=== PATIENT | male | born 1960 | race Caucasian/White ===

== ENCOUNTER 2020-05-23 13:54 | Outpatient (CLI) | payer OTHER, SELFPAY ==
--- NOTE | 2020-05-23 | ECHO_ITS ---
Patient Info Name: Gold Hernandez Age: 59 years : 1960 Gender: Male Ht: 66 in Wt: 220 lbs BSA: 2.20 m2 HR: 72 bpm BP: 134 / 83 mmHg Technical Quality: Good Exam Date: 05/23/2020 2:31 PM Exam Location: [facility] Patient Status: Outpatient Admit Date: 05/23/2020 Staff Ordering Physician: PHYSICIAN NOT ON STAFF, NONSTAFF Interface Analyst: Juwan Lenz, DENNIS, RT Attending Provider: PHYSICIAN NOT ON STAFF, NONSTAFF Exam Type: CA echo doppler color flow Study Info Indications I10 - Essential (primary) hypertension Complete two-dimensional, color flow and Doppler transthoracic echocardiogram is performed. Summary 1. Left ventricular chamber dimension is normal. 2. Left ventricular systolic function is normal, estimated at 60-65%. 3. The left ventricular diastolic function is grade II diastolic dysfunction. 4. E/e' 7 is not elevated. 5. Right ventricular chamber dimension is mildly enlarged. 6. There is mild tricuspid valve regurgitation. 7. No pulmonary hypertension, estimated pulmonary arterial systolic pressure is 23 mmHg. 8. There is trace pulmonic regurgitation. 9. There is trivial pericardial effusion. Left Ventricle E/e' 7 is not elevated. Left ventricular chamber dimension is normal. Left ventricular systolic function is normal, estimated at 60-65%. The left ventricular diastolic function is grade II diastolic dysfunction. Right Ventricle Moderator band which is normal variant. Right ventricular chamber dimension is mildly enlarged. Right ventricular systolic function is normal. Left Atria Left atrial chamber dimension is normal. Right Atria Right atrial chamber dimension is normal. Aortic Valve The aortic valve is trileaflet. There is no aortic valve stenosis. There is no aortic valve regurgitation. Pulmonic Valve There is trace pulmonic regurgitation. Mitral Valve There is no mitral valve stenosis. There is no mitral valve regurgitation. Tricuspid Valve There is mild tricuspid valve regurgitation. No pulmonary hypertension, estimated pulmonary arterial systolic pressure is 23 mmHg. Pericardium/Pleural There is trivial pericardial effusion. Inferior Vena Cava Normal inferior vena cava with >50% collapse upon inspiration consistent with normal right atrial pressure, 5 mmHg. Aorta The aortic root size at the sinus of Valsalva is normal. Left Ventricular Outflow Tract Name Value Normal LVOT 2D LVOT Diameter 2.0 cm LVOT Doppler LVOT Peak Gradient 2 mmHg LVOT Mean Gradient 1 mmHg LVOT VTI 15 cm LVOT VTI/AV VTI Ratio 0.7 LVOT Stroke Volume 47 ml LVOT CO 3.3 l/min LVOT CI 1.5 l/min/m2 Mitral Valve Name Value Normal MV Doppler
== END 2020-05-23 13:55 | disposition home or self-care (01) ==
PROVIDERS: PCP Family Medicine
DX: I27.20 Pulmonary hypertension, unspecified (principal); I36.1 Nonrheumatic tricuspid (valve) insufficiency
CPT/HCPCS: 93306

== ENCOUNTER 2020-05-30 13:49 | Outpatient (CLI) | payer OTHER, SELFPAY ==
--- NOTE | 2020-06-02 19:23 | WPDPFTINT ---
PFT Interpretation PFT Interpretation: DOS: 05/30/2020 REQUESTING: Danielle Juarez MD REASON FOR TESTING: dyspnea on exertion PULMONARY FUNCTION TESTS Results are reproducible. Spirometry: FEV1 is 69%, moderately reduced. FVC is 75%, mildly decreased. Decreased FEV1% consistent with airflow obstruction. [id number]% is very low, 37%. There is no significant response to bronchodilator. Lung volumes: TLC 90%, normal. RV 95%, normal. RV/TLC increased consistent with air trapping. Airway resistance is increased 190%. Diffusion: DLCO is mildly reduced 65%. Flow volume loop: Scooping of the expiratory limb. IMPRESSION: Moderate obstructive ventilatory defect with air trapping and mild diffusion impairment without response to bronchodilator. Lack of response to bronchodilators should not preclude use if clinically indicated. This pattern may be seen in emphysema. Macy Salinas MD
--- NOTE | 2020-06-02 19:29 | WPDSIXMINUTE ---
Six Minute Walk Six Minute Walk: DOS: 05/30/2020 REQUESTING: Danielle Juarez MD REASON FOR TESTING: dyspnea on exertion SIX MINUTE WALK This test was conducted per ATS guidelines, on room air, and the patient did not stop to rest during the test. The initial saturation is 93% and pulse was 71. The saturation ranged from 90% to 98%. Pulse ranged from 63 to 112. Distance walked is 1300 feet/396 meters. IMPRESSION: This walk study does not show hypoxemia requiring supplemental oxygen.
== END 2020-05-30 13:50 | disposition home or self-care (01) ==
LOC: ANHPFT 13:50
PROVIDERS: PCP Family Medicine
DX: R06.00 Dyspnea, unspecified (principal); R94.2 Abnormal results of pulmonary function studies
CPT/HCPCS: 94060; 94618; 94726; 94729

== ENCOUNTER 2020-12-27 18:06 | Emergency (ER) | payer OTHER, SELFPAY ==
[2020-12-27 18:14] VITALS: BP 148/83; PULSE 101; RESP 16; TEMP 36.9; O2SAT 98
--- NOTE | 2020-12-27 19:17 | ED.GENADULT ---
HPI - General Adult General Chief complaint: Skin/Abscess/Foreign Body Stated complaint: lump on groin area Time Seen by Provider: 12/27/20 19:17 Source: patient, RN notes reviewed and old records reviewed Mode of arrival: ambulatory Limitations: no limitations History of Present Illness HPI narrative: 60 year old male presents to express care with complaints of 1 week duration of raised swollen area to the underneath of right testicle. Patient states mild discomfort to area, denies any fevers, chills or sweats. Area noted to be 1cm diameter soft with noted serosanguineous drainage from area. No surrounding redness or induration of tissue, no pustular drainage noted.Patient states that he has noted some brownish drainage from area and some bloody drainage the past few days. Patient denies any acute pain to testicle but he was concerned that he may need an antibiotic. MD complaint: abscess right underside testicle Onset (ago): week(s) (1) Location: genitals (underneath area of right testicle) Radiation: non-radiation Severity: mild Quality: aching Pain Consistency: intermittent Associated symptoms: denies other symptoms Treatments prior to arrival: none Related Data Allergies Allergy/AdvReac Type Severity Reaction Status Date / Time meperidine [From Demerol] AdvReac Cramping Verified 12/27/20 18:29 of the Muscles Review of Systems Review of Systems: Narrative: CONSTITUTIONAL: Denies fever, chills, or sweats. EYES: Denies visual changes, redness, or discharge. ENT: Denies rhinorrhea, congestion, sore throat, or otalgia. CARDIOVASCULAR: Denies chest pain, palpitations, or edema. RESPIRATORY: Denies cough or dyspnea. GASTROINTESTINAL: Denies abdominal pain, nausea, vomiting, or diarrhea. GENITOURINARY: Denies dysuria or hematuria. SKIN: Denies rash or itching.1cm draining abscess underneath region of right testicle MUSCULOSKELETAL: Denies back pain, joint pain, or myalgia. NEUROLOGIC: Denies headache, numbness, or weakness. PSYCHIATRIC: Denies anxiety or depression. All systems reviewed & are unremarkable except as noted in HPI and below PMFSH Past Medical History Medical History (Updated 12/30/20 @ 14:15 by Niki Benavides NP) COPD (chronic obstructive pulmonary disease) Fracture of right upper limb Herpes keratitis of right eye Liver cirrhosis, alcoholic Surgical History Surgical History (Updated 12/30/20 @ 14:07 by Niki Benavides NP) No history of previous surgery Family History Family History (Updated 12/30/20 @ 14:07 by Niki Benavides NP) Other No significant family history Social History Social History (Updated 12/30/20 @ 14:08 by Niki Benavides NP) Smoking packs per day: 0.5 Smoking cigarettes per day: 10.0 Smoking status: Current every day smoker Alcohol intake: former Substance use: never Living arrangements: with family Gender identity (if verbalized by the patient): Male Comments At time of signature, agree with nursing past medical, surgical, social and family history. There is no relevant family history pertinent to the presenting complaint Exam Narrative: Exam Narrative: GENERAL: Well-appearing, well-nourished, and in no acute distress. HEAD: Normocephalic, atraumatic. EYES: PERRLA and EOMI. ENT: Nares clear, no rhinorrhea or epistaxis. Mucous membranes moist. NECK: Supple.no lymphadenopathy CHEST: Clear to auscultation. No respiratory distress.SAO2 98% on room air HEART: Regular rate and rhythm. No murmur heard. Normal peripheral pulses, no chest pressure, pain or palpitations ABDOMEN: Soft, nontender, nondistended, normal active bowel sounds. EXTREMITIES: Normal range of motion. No edema. SKIN: Warm, dry, no rash.1cm draining abscess to underneath side of right testicle with no surrounding redness or induration, drainage noted to be bloody to serosanguineous in color, no acute pain, fevers or chills NEURO: No focal deficits. Alert and oriented x3. Co
== END 2020-12-27 19:42 | disposition home or self-care (01) ==
PROVIDERS: Emergency Provider Registered Nurse; PCP Family Medicine
DX: K65.1 Peritoneal abscess (principal); F17.210 Nicotine dependence, cigarettes, uncomplicated; J44.9 Chronic obstructive pulmonary disease, unspecified; K70.30 Alcoholic cirrhosis of liver without ascites
CPT/HCPCS: 99213; G0463